=== PATIENT | male | born 1960 | race Caucasian/White ===

== ENCOUNTER 2021-09-16 08:25 | Emergency (ER) | payer OTHER, SELFPAY ==
--- NOTE | ~2021-09-16 | XR_ITS ---
EXAMINATION: LEFT SHOULDER AND LEFT ELBOW X-RAYS CLINICAL INFORMATION: Pain COMPARISON: None TECHNIQUE: 4 views of the left shoulder and 3 views of the left elbow FINDINGS: Left shoulder: Bone alignment is normal. No fracture or dislocation is seen. The glenohumeral joint is normal. There is mild arthritis at the acromioclavicular joint. There is a small soft tissue ossification that projects inferior to the glenoid. Left elbow: Bone alignment is normal. No fracture or dislocation is seen. The joint spaces are normal. There is no joint effusion. XR/XR shoulder LT min 2V IMPRESSION: Left shoulder: Mild degenerative changes at the acromioclavicular joint. Left elbow: Unremarkable exam.
--- NOTE | ~2021-09-16 | XR_ITS ---
EXAMINATION: LEFT SHOULDER AND LEFT ELBOW X-RAYS CLINICAL INFORMATION: Pain COMPARISON: None TECHNIQUE: 4 views of the left shoulder and 3 views of the left elbow FINDINGS: Left shoulder: Bone alignment is normal. No fracture or dislocation is seen. The glenohumeral joint is normal. There is mild arthritis at the acromioclavicular joint. There is a small soft tissue ossification that projects inferior to the glenoid. Left elbow: Bone alignment is normal. No fracture or dislocation is seen. The joint spaces are normal. There is no joint effusion. XR/XR elbow LT 2V IMPRESSION: Left shoulder: Mild degenerative changes at the acromioclavicular joint. Left elbow: Unremarkable exam.
[2021-09-16 08:29] VITALS: BP 186/98; PULSE 74; RESP 18; TEMP 36.6; O2SAT 97; BMI 27.1
--- NOTE | 2021-09-16 08:49 | ED_ITS ---
HPI - Extremity Problem General Chief complaint: Extremity Injury, Upper Stated complaint: L ARM INJ WORK RELATED Time Seen by Provider: 09/16/21 08:39 Source: patient Mode of arrival: ambulatory Limitations: no limitations History of Present Illness HPI Narrative: 61-year-old male no known medical history presents to the emergency department with left-sided arm pain secondary to work related injury this morning, 1 hour prior to his arrival. He states this morning he is working with a drill bit, in a ranch, he states the wrench slipped, there was pushed back, and immediately started feeling 10/10 pain to his left bicep. He clarified done nothing hit him in area, it was just the force from push back. He states that the pain is better at rest, worse with movement, particularly heavy lifting. He also mentions that before returning to work he must obtain a urine tox screen. MD Complaint: extremity pain Onset (ago): hour(s) (1) Pain Consistency: constant Location: left Severity scale (1-10): 10 (With movement) Quality: aching and constant Radiation: none Relieving factors: immobilization Exacerbating factors: range of motion and other (lifting ) Associated symptoms: denies other symptoms Context: other (work related) Related Data Previous Rx's Medication Instructions Recorded cyclobenzaprine 10 mg tablet 10 mg PO Q8H #7 tab 09/16/21 naproxen 500 mg tablet 500 mg PO BID #14 tab 09/16/21 Allergies Allergy/AdvReac Type Severity Reaction Status Date / Time Unable to Assess Allergy Unverified 09/16/21 08:48 Review of Systems Review of Systems: Yes all other systems are reviewed and are negative Constitutional: Constitutional: Reports no additional constitutional complaints, Denies body ache(s), Denies chills, Denies fever(s), Denies headache(s) and Denies weakness Eyes: Eyes: Reports no additional eye complaints and Denies change in vision ENT: Reports system reviewed and no additional complaints, except as documented, Denies dizziness, Denies headache(s), Denies nasal congestion, Denies nasal discharge and Denies neck pain Cardiovascular: Cardiovascular: Reports no additional cardiovascular complaints, Denies chest pain, Denies leg edema and Denies dyspnea Respiratory: Respiratory: Reports no additional respiratory complaints, Denies cough and Denies dyspnea Gastrointestinal: Gastrointestinal: Reports no additional gastrointestinal complaints, Denies abdominal pain, Denies diarrhea, Denies nausea and Denies vomiting Genitourinary: Genitourinary: Denies urinary incontinence Musculoskeletal: Musculoskeletal: Reports no additional musculoskeletal complaints, Denies back pain, Reports arthralgias (left arm pain ), Denies joint swelling, Denies neck pain, Denies numbness and Denies tingling Integumentary/Breasts: Skin/Breast: Reports system reviewed and no additional complaints, except as docu and Denies rash Neurologic: Reports system reviewed and no additional complaints, except as documented, Denies Abnormal speech present, Denies dizziness, Denies headache(s), Denies numbness, Denies tingling and Denies weakness PMFSH Past Medical History Attestation statement: The following information was validated with the patient. Source: old records reviewed and nursing notes reviewed Medical History HTN (hypertension) Social History Social History Advance Directives: No Advance Directives Information Provided: No Physical Exam Vital Signs: Vital Signs: Last Vital Signs Temp 97.8 F 09/16/21 08:29 Pulse 74 09/16/21 08:29 Resp 18 09/16/21 08:29 BP 186/98 H 09/16/21 08:29 Pulse Ox 97 09/16/21 08:29 Body Mass Index 27.1 Const: General: cooperative, healthy appearing, comfortable and no acute distress Orientation/consciousness: patient oriented x3 Limitations: no limitations HENMT: Head: Yes normal to inspection Ears: hearing grossly normal bilaterally General nose exam: Normal external nose present Face and sinus: Yes normal facial exam Mouth: Normal oral and palatal mucosa present Throat: Yes posterior oropharynx normal Eyes: General: appearance normal, both eyes and all related structures Pupils: Equal, round and reactive pupils present Neck: Neck: Yes normal visual inspection Chest: Chest palpation & inspection: normal inspection of the chest Resp: Effort & Inspection: normal respiratory effort Auscultation: clear to auscultation bilaterally Cardio: Rate: regular rate Rhythm: regular rhythm Peripheral pulses: Per ipheral pulses 2+ throughout GI: Inspection: Yes normal to inspection Palpation (GI): Soft to palpation and nontender Auscultation: normal bowel sounds Back/Spine/Pelvis: Thoracic/Lumbar Spine: thoracic and lumbar spine normal to inspection Skin: General skin exam: no rashes or lesions noted Neuro: General: patient oriented x3, no focal motor deficits and normal sensation to monofilament Cranial nerves: Yes Equal, round and reactive pupils present Cognition (Neuro): normal cognition Speech: No Abnormal speech present Gait exam (Neuro): Normal gait present Motor exam (neuro): 5/5 motor strength present throughout Extrem: Other: Pain with abduction of the left shoulder. Full passive range of motion to left elbow and shoulder. Limited active range of motion due to pain to left shoulder. No step-offs or deformities noted to the left arm, or over the shoulder, or elbow. No evidence ligamentous injury. No overlying skin changes to left arm. Good peripheral pulses 2+ equal and bilateral. Capillary refill less than 2 seconds. No wrist strep noted to bilateral upper extremities. No evidence signs of trauma. General: Yes normal to inspection and No full ROM Course Reevaluation(s) Reevaluation #1: X-ray show no fracture, or dislocation. There is mild degenerative changes at the AC joint to the left shoulder. Patient is safe for discharge home with were connection follow-up, and orthopedic follow-up as needed. He has been advised to return to the emergency department with new or worsening symptoms. Time: 09:26 MDM - Extremity (Nontraumatic) MDM Narrative Medical decision making narrative: [id number] 61-year-old male no known medical history presents to the emergency department with pain overlying his left by staffed, and pain to shoulder with range of motion. He states this was a work related injury, he states he was working with a drill bit, and a wrench slipped back, with heavy force, the wrench did not hit his left arm however it was the push back/for stat hurt him. Upon physical examination there is pain with abduction of the left shoulder. F ull passive range of motion to left elbow and shoulder. Limited active range of motion due to pain to left shoulder. No step-offs or deformities noted to the left arm, or over the shoulder, or elbow. No evidence ligamentous injury. No overlying skin changes to left arm. Good peripheral pulses 2+ equal and bilateral. Capillary refill less than 2 seconds. No wrist strep noted to bilateral upper extremities. No evidence signs of trauma. 5/5 strength upper extremities. Plan at this time is to obtain an x-ray of the left shoulder, and elbow. Medical Records Attestation: I reviewed the patient's medical records. Imaging Data Left elbow, shoulder x-ray: Attestation: I personally reviewed and interpreted this imaging study as follows: Radiologist's impression: FINDINGS: Left shoulder: Bone alignment is normal. No fracture or dislocation is seen. The glenohumeral joint is normal. There is mild arthritis at the acromioclavicular joint. There is a small soft tissue ossification that projects inferior to the glenoid. Left elbow: Bone alignment is normal. No fracture or dislocation is seen. The joint spaces are normal. There is no joint effusion.? XR/XR elbow LT 2V IMPRESSION: Left shoulder: Mild degenerative changes at the acromioclavicular joint. ? Left elbow: Unremarkable exam.? Discharge Plan Discharge Clinical Impression: Work related injury Biceps muscle strain Qualifiers: Encounter type: initial encounter Laterality: left Qualified Code(s): S46.212A - Strain of muscle, fascia and tendon of other parts of biceps, left arm, initial encounter Patient Disposition: Home, Self-Care Instructions: Muscle Strain (ED) Additional Instructions: Follow-up with work connections (phone number [phone]), and your primary care provider. Your x-rays today did not show a fracture, or dislocation. Follow-up with orthopedics if your symptoms do not resolve within a week, or if they severely worsen. Return to the emergency department with new or worsening symptoms. Prescriptions: New cyclobenzaprine 10 mg tablet 10 mg PO Q8H Qty: 7 RF: 0 naproxen 500 mg tablet 500 mg PO BID Qty: 14 RF: 0 Referrals: Quang Carmona MD [Primary Care Provider] - 2 days Cirilo Vasquez MD [Physician] - 10 days Stand Alone Forms: Work/School Release Interventions: ED Discharge Assessment Last Done: 09/16/21 09:40 Discharge Date/Time: 09/16/21 09:40
[2021-09-16 12:29] LABS: Amphetamine Screen Urine Not Detected (Not Detect); Barbiturates, Urine Not Detected (Not Detect); Benzodiazepines Screen Urine Not Detected (Not Detect); Cannabinoid Screen Urine Not Detected (Not Detect); Cocaine Screen Urine Not Detected (Not Detect); Fentanyl, urine Not Detected (Not Detect); Opiate Screen Urine Not Detected (Not Detect); Phencyclidine Screen Urine Not Detected (Not Detect)
== END 2021-09-16 09:40 | disposition home or self-care (01) ==
PROVIDERS: Nurse Practitioner Family; Emergency Provider Emergency Medicine; PCP Internal Medicine
DX: S46.212A Strain of muscle, fascia and tendon of other parts of biceps, left arm, initial encounter (principal); M79.602 Pain in left arm; W19.XXXA Unspecified fall, initial encounter; Y93.9 Activity, unspecified; Y92.9 Unspecified place or not applicable; Y99.0 Civilian activity done for income or pay; Z79.899 Other long term (current) drug therapy
CPT/HCPCS: 73030; 73070; 80307; 99284

== ENCOUNTER → 2021-09-18 09:04 | Outpatient (BNVA) | payer OTHER, SELFPAY | PROVIDERS: PCP Internal Medicine; Visit Provider Physician Assistant Medical | DX: S46.212A Strain of muscle, fascia and tendon of other parts of biceps, left arm, initial encounter (principal); X50.1XXA Overexertion from prolonged static or awkward postures, initial encounter | CPT/HCPCS: 99203 ==

== ENCOUNTER 2021-09-27 14:00 | Outpatient (RCR) | payer OTHER, SELFPAY ==
--- NOTE | 2021-09-19 20:11 | MHC.PT.EP ---
[facility] [place] [facility] [place] [facility] [place] [facility] [address] Elis Ceballos [address] [phone] F: [phone] F: [phone] F: [phone] F: [phone] Physical Therapy Plan of Care Date of Evaluation: Date of Surgery: Diagnosis: L biceps tendon strain/ partial tear. Assessment: Pt is a 61 y/o male referred to PT for eval and treat of L biceps tendon strain/ partial tear resulting in decreased tolerance and ability to perform reaching a high shelf, dressing pullovers, reaching his neck and back for hygiene/ dressing and carrying objects of weight secondary to decreased L UE strength and ROM, increased tissue tension, acuteness of injury, and pain. Pt is deemed an appropriate candidate to receive skilled PT in order to address his physical limitations to improve his functional ability. Frequency and Duration: The patient will be seen 2 x / wk x 6 wks. Short Term Goals: In 1 week: initiate HEP with evidence of compliance. In 3 weeks: improve baseline pain from 6/10 to < 3/10. Skilled Nursing Goals: I with HEP. Pt will be able to dress pullovers with managed Sx. initial: 6/10 difficulty. Pt will be able to place objects on high shelf with managed Sx. initial : unable Pt will be able to lift and carry 25# with managed SX; initial unable Treatment Plan: Modalities to reduce pain, spasms and effusion. Manual therapy to restore motion and function. Therapeutic exercise to improve strength and flexibility. Neuromuscular re-education for posture and balance. Therapeutic activities to return to functional activities of daily living. Electronically signed by: Ryne Matute PT. Please sign and return to therapist. Thank you for your referral.
--- NOTE | 2021-12-04 09:53 | MHC.PT.DC ---
[facility] [place] [facility] [place] Office [place] Office [address] Elis Ceballos [address] [facility] [phone] F: [phone] F: [phone] F: [phone] F: [phone] Physical Therapy Discharge Report Diagnosis: L biceps tendon strain/ partial tear. Date of Surgery: Date of Evaluation: 09/19/21 Date of Discharge: 11/06/21 Treatments to Date: 3 Cancellations to Date: No Shows to Date: Discharge Status: Patient Elected to Stop Recommend MD Follow-up Discharge Summary: Pt DC from therapy as he had his MRI and is considering surgical options. Electronically signed by: Ryne Matute PT. Please sign and return to therapist. Thank you for your referral.
== END 2021-12-04 09:54 | disposition home or self-care (01) ==
LOC: HO.PTCHIC 14:00
PROVIDERS: Visit Provider Internal Medicine
DX: S46.212D Strain of muscle, fascia and tendon of other parts of biceps, left arm, subsequent encounter (principal)
CPT/HCPCS: 97014; 97110; 97140; 97161

== ENCOUNTER 2021-10-02 18:53 | Outpatient (REF) | payer OTHER, SELFPAY ==
--- NOTE | ~2021-10-02 | MR_ITS ---
EXAMINATION: MR SHOULDER WITHOUT CONTRAST, LEFT MR HUMERUS WITHOUT CONTRAST, LEFT CLINICAL INFORMATION: Rule out proximal biceps tear and distal biceps tendinopathy. No recent injury. Patient reports no symptoms at present. COMPARISON: Radiograph dated 09/16/2021. TECHNIQUE: MR images of the shoulder and of the left humerus were obtained on a 1.5 Carrie high-field strength scanner without intravenous contrast material. FINDINGS: LEFT SHOULDER: ROTATOR CUFF: A full-thickness insertional tear of the supraspinatus and infraspinatus tendons measures 3.5 cm AP with medial retraction of the torn fibers up to 2.8 cm, just lateral to the level of the glenoid fossa. There is mild associated supraspinatus and infraspinatus muscle atrophy and grade 2 fatty replacement. There is also a partial-thickness articular-sided tear of the subscapularis tendon measuring 3.3 cm longitudinally with a few intact bursal-sided fibers and inferior fibers. This tear extends into the biceps sling. No significant subscapularis or teres minor muscle atrophy. BICEPS: Medially dislocated from the bicipital groove with associated tendinosis. CORACOACROMIAL ARCH: The undersurface of the acromion is flat with no subacromial spur. Moderate acromioclavicular osteoarthritis. Trace fluid in the subacromial-subdeltoid bursa. LABRUM/CAPSULE: Undersurface fraying is present at the posterosuperior labrum. No tears. The biceps sling is torn. Joint capsule is otherwise intact. GLENOHUMERAL JOINT/MARROW: Articular cartilage appears relatively well preserved at the glenohumeral joint. No fracture or malalignment. Trace effusion. LEFT HUMERUS: As noted above, there is moderate tendinosis at the proximal tendon of the long head of the biceps. The biceps is normal in muscle bulk without atrophy. Distal biceps tendon is intact without appreciable tears, though the distal insertion is only included at the far distal margin of the study. Left upper extremity musculature is normal aside the aforementioned atrophy at the rotator cuff. Deltoid musculature is normal. No edema signal. Humerus is normal in signal intensity without osseous lesions. No stress reactions or fractures. Imaged portion of the elbow joint is unremarkable. No epitrochlear adenopathy. Imaged portion of the left hemithorax is unremarkable. No axillary adenopathy. MR/MR shoulder LT wo con IMPRESSION: 1. A large 3.5 cm full-thickness insertional tear of the supraspinatus and infraspinatus tendon with mild muscle atrophy and grade 2 fatty replacement. 2. High-grade partial-thickness articular-sided tear of the subscapularis tendon extending into the biceps sling. There is associated medial subluxation of the proximal tendon of the long head of the biceps with tendinosis. No tears. 3. Intact distal biceps. 4. Moderate acromioclavicular osteoarthritis.
== END 2021-10-02 18:54 | disposition home or self-care (01) ==
LOC: HO.MRI 18:53
PROVIDERS: Visit Provider Internal Medicine
DX: S46.012A Strain of muscle(s) and tendon(s) of the rotator cuff of left shoulder, initial encounter (principal)
CPT/HCPCS: 73218; 73221

== ENCOUNTER → 2021-10-04 13:29 | Outpatient (BNVA) | payer OTHER, SELFPAY | PROVIDERS: Visit Provider Physician Assistant | DX: M75.102 Unspecified rotator cuff tear or rupture of left shoulder, not specified as traumatic (principal) | CPT/HCPCS: 99214 ==

== ENCOUNTER → 2021-10-18 13:29 | Outpatient (BNVA) | payer OTHER, SELFPAY | PROVIDERS: Visit Provider Physician Assistant | DX: M75.102 Unspecified rotator cuff tear or rupture of left shoulder, not specified as traumatic (principal) | CPT/HCPCS: 99214 ==

== ENCOUNTER 2022-09-05 15:00 | Outpatient (RCR) | payer OTHER, SELFPAY | END 2023-01-03 08:20 | disposition home or self-care (01) | LOC: HO.PTCHIC 15:00 | PROVIDERS: Visit Provider Orthopaedic Surgery Sports Medicine | DX: S46.002D Unspecified injury of muscle(s) and tendon(s) of the rotator cuff of left shoulder, subsequent encounter (principal) | CPT/HCPCS: 97110; 97140; 97162; 97164; 97530 ==

== ENCOUNTER 2025-09-21 17:03 | Outpatient (RCR) | payer BC, SELFPAY | END 2025-10-21 09:51 | disposition home or self-care (01) | LOC: HO.PT 17:03 | PROVIDERS: PCP Internal Medicine; Visit Provider Orthopaedic Surgery Sports Medicine | DX: M25.511 Pain in right shoulder (principal) | CPT/HCPCS: 97110; 97162; 97530 ==